=== PATIENT | female | born 1945 | race Caucasian/White ===

== ENCOUNTER 2019-02-12 00:33 | Outpatient (CLI) | payer MEDICARE, SELFPAY ==
--- NOTE | 2019-02-12 08:42 | DI.MAMMO_ITS ---
SYMPTOM/DIAGNOSIS: SCREENING, Z12.31, [facility], Z00.00 MAMMOGRAMS: Mammograms were interpreted according to the usual protocol including computer analysis with CAD system, tomosynthesis and C view imaging. The breast tissue is heterogeneously radiodense which lowers the sensitivity of the study. There is no dominant mass. There are no suspicious calcifications and there has been no significant interval change when compared with prior images. SUMMARY: No evidence of malignancy, category 1. Yearly screening mammography is recommended. Breast density, Category C. SA ASSESSMENT OF FINDINGS: Negative. Category 1. Patient will receive a letter notifying them of these results. Bi-RADS category C. The breasts are heterogeneously dense, which may obscure small masses.
== END 2019-02-12 00:53 ==
PROVIDERS: PCP Family Medicine; Visit Provider Family Medicine
DX: Z12.31 Encounter for screening mammogram for malignant neoplasm of breast (principal)
CPT/HCPCS: 77063; 77067

== ENCOUNTER 2020-09-07 22:34 | Outpatient (REF) | payer MEDICARE, SELFPAY ==
[2020-09-07 18:40] LABS: Anion Gap 8.4 mmol/L (3-11); BUN 14 mg/dL (7-18); CO2 29.6 mmol/L (21.0-32.0); CREATININE 0.71 mg/dL (0.55-1.02); Calcium 9.4 mg/dL (8.5-10.1); Calculated LDL 147 mg/dL (<100); Chloride 104 mmol/L (98-107); Cholesterol 234 mg/dL (<200); Glucose 86 mg/dL (74-106); HDL Cholesterol 72 mg/dL (40-60); Sodium 142 mmol/L (136-145); Triglyceride 79 mg/dL (<150)
== END 2020-09-07 22:54 ==
LOC: NCHCN 22:34
PROVIDERS: PCP Family Medicine; Visit Provider Family Medicine
DX: E78.5 Hyperlipidemia, unspecified (principal); F41.9 Anxiety disorder, unspecified; M85.80 Other specified disorders of bone density and structure, unspecified site; M17.0 Bilateral primary osteoarthritis of knee
CPT/HCPCS: 80048; 80061

== ENCOUNTER 2020-09-08 09:49 | Outpatient (CLI) | payer MEDICARE, SELFPAY ==
--- NOTE | 2020-09-07 15:44 | DI.RAD_ITS ---
EXAM: XR FOOT LT COMPLETE CLINICAL HISTORY: LT FOOT PAIN, M79.672. TECHNIQUE: 2D digital imaging was performed. COMPARISON: No exams were available for comparison FINDINGS: BONES: No acute fracture is present. No bony destructive lesion is seen. JOINTS: No dislocation present. Mild degenerative changes are seen at the 1st MTP joint. There is a small enthesophyte at the Achilles insertion site. SOFT TISSUE: Normal. IMPRESSION: No acute abnormality. Degenerative changes of the foot. DATA REPOSITORY: RADIATION DOSE DELIVERED:
== END 2020-09-08 10:09 ==
PROVIDERS: PCP Family Medicine; Visit Provider Family Medicine
DX: M79.672 Pain in left foot (principal); M19.072 Primary osteoarthritis, left ankle and foot
CPT/HCPCS: 73630

== ENCOUNTER 2020-09-23 02:43 | Outpatient (CLI) | payer MEDICARE, SELFPAY ==
--- NOTE | 2020-09-23 12:40 | DI.MAMMO_ITS ---
EXAM: MAMMO SCREENING CLINICAL HISTORY: SCREENING,FAMILY H/O BREAST CA,Z80.3,[facility],Z00.00 TECHNIQUE: Mammograms were interpreted according to the usual protocol including computer analysis w [email or web address] CAD system, tomosynthesis and C-view imaging. COMPARISON: FINDINGS: The breasts are heterogeneously dense. No dominant mass or clumped microcalcification is identified in either breast. The current examination is compared with previous examinations including January and there is question of increased prominence of a focal area of asymmetric density projected in th e central lateral portion of the right breast on CC view. Additional mammographic views of this area are requested to include CC spot compression view of the right breast. No other significant change seen. IMPRESSION: Additional mammographic views of the right breast requested as described above. Breast ultrasound ma y be indicated as well depending on the results of the additional mammographic views. BI-RADS Category 0 - Assessment Incomplete: Need additional imaging evaluation Breast Density - Category C - Heterogeneously dense
== END 2020-09-23 03:03 ==
PROVIDERS: PCP Family Medicine; Visit Provider Family Medicine
DX: Z12.31 Encounter for screening mammogram for malignant neoplasm of breast (principal); Z80.3 Family history of malignant neoplasm of breast; Z00.00 Encounter for general adult medical examination without abnormal findings; R92.8 Other abnormal and inconclusive findings on diagnostic imaging of breast
CPT/HCPCS: 77063; 77067

== ENCOUNTER 2020-09-30 01:20 | Outpatient (CLI) | payer MEDICARE, SELFPAY ==
--- NOTE | 2020-09-30 | DI.US_ITS ---
EXAM: MG MAMMO SCREEN CALL BACK UNI CLINICAL HISTORY: F/U MAMMO, INCREASED ASYMMETRIC DENSITY RT. TECHNIQUE: Craniocaudal and mediolateral oblique Full Field Digital Mammography views of the right b reast with Computer Aided Diagnosis followed by Tomosynthesis and right breast ultrasound. COMPARISON: Priors available for comparison. FINDINGS: Mammography/Tomosynthesis: Masses/Architectural Distortion: None seen. Microcalcifictions: No suspicious pleomorphic-type are seen. Skin Thickening/Nipple Retraction: None. Right breast US: Echotexture: Normal appearance of the glandular tissue. Shadowing: No suspicious foci. Cyst: None. Solid lesions: None seen. Ductal dilation: Mildly prominent ducts are present. No significant ductal dilatation. IMPRESSION: 1. No evidence of malignancy is noted. 2. A six-month follow-up right mammogram is requested for re-evaluation. 3. The findings were discussed with the patient on the date of the examination. BI-RADS Category 3 - 6 month - Probably Benign Finding: Recommend follow-up mammography in 6 months Breast Density - Category C - Heterogeneously dense The mammogram demonstrates the patient's breast tissue is dense. Dense breast tissue is very common a nd is not abnormal but dense breast tissue can make it harder to find cancer on a mammogram. Also, de nse breast tissue may increase their breast cancer risk. [facility] was provided to the patient to raise their awareness. Use this report when you speak wi th the patient about their risks for breast cancer, which includes their family history. At that time , you may recommend for more screening tests (Ultrasound or MRI) as they might be useful based on the ir risk. A negative radiographic report should not delay biopsy if a dominant or clinically suspicious mass is present. Up to ten percent of cancers are not identified on mammography. A negative report may reinforce clinical impression. Adenosis and dense breasts may obscure an underlying neoplasm. False positive reports average 6 to 10%. Patient will receive a letter notifying them of these results.
== END 2020-09-30 01:40 ==
PROVIDERS: PCP Family Medicine; Visit Provider Family Medicine
DX: R92.8 Other abnormal and inconclusive findings on diagnostic imaging of breast (principal)
CPT/HCPCS: 76642; 77063; 77067

== ENCOUNTER 2020-11-02 09:21 | Day surgery (SDC) | payer MEDICARE, SELFPAY ==
[2020-11-02 09:31] VITALS: BP 149/74; PULSE 69; RESP 18; TEMP 36.6; O2SAT 95
[2020-11-02] MEDS: Tropicam./Phenyleph. (1/2.5%) 5 ML BTL OD ×3 (10:00→10:07)
[2020-11-02] MEDS: Tetracaine 0.5% 4 ML BTL OD (11:42)
[2020-11-02] MEDS: Povidone-Iodine Ophth 30 ML BTL (11:43)
[2020-11-02] MEDS: Lidocaine 2% Jelly 6 ML SYR (11:43)
[2020-11-02] MEDS: Lidocaine 1% Pres-Free 5 ML VIAL (11:48)
[2020-11-02] MEDS: Balanced Salt Soln.-PLUS 500 ML BAG (11:51)
[2020-11-02] MEDS: Duovisc Viscoelastic System EACH 1 EACH (11:52)
[2020-11-02] MEDS: Moxifloxacin-PF 1 MG/ML VIAL (11:54)
--- NOTE | 2020-11-02 12:21 | W.PM.DSUDISC ---
Discharge Plan Disposition Patient Disposition: HOME Condition: Good Discharge Details Attending Provider: Wilmar Garcia Primary Care Provider: John Moroe Home Meds and New Rx's Prescriptions: No Action No Known Home Meds RF: 0 Discharge Instructions Stand Alone Forms: Post-op Topical Cataract, Jaylon Lindsay (DSU) Discharge Orders Discharge Orders: Discharge Order (Routine); Ordered 11/02/20 Ordered By: Wilmar Garcia DS: Diagnosis Discharge Diagnosis (1) Nuclear sclerotic cataract of right eye: Status: Resolved
--- NOTE | 2020-11-02 12:22 | W.PM.OP ---
Date of service: 11/02/20 Time of Service: 12:22 Operative Note Operative Note DATE OF PROCEDURE: 11/02/20 PRE-OP DIAGNOSIS: Nuclear cataract, right eye POST-OP DIAGNOSIS: same PROCEDURE: Cataract extraction using phacoemulsification with intraocular lens implant, right eye SURGEON: Wilmar Garcia ANESTHESIA: MAC and local (sub-tenon's anesthetic infiltration) ESTIMATED BLOOD LOSS: 0 PATHOLOGY: none sent COMPLICATIONS: None Patient was transported to: same day Patient's condition: stable Implants: Kwaku [employer] Kw[employer] Vision / [employer] Tecnis ZCB00 intraocular lens Indications: Progressive decreased vision due to cataract, right eye Procedure Description: CATARACT SURGERY OPERATIVE REPORT PREOPERATIVE DIAGNOSIS: Nuclear cataract, right eye POSTOPERATIVE DIAGNOSIS: Same OPERATION: Cataract extraction using phacoemulsification with posterior chamber intraocular lens implant, right eye. 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 The option of cataract surgery was offered to the patient and felt she was symptomatic of that she wished to proceed. PROCEDURE: The correct surgical eye was identified and marked as the right eye and the pupil was dilated in the preoperative area using mydriatics and cycloplegics. The dilated pupil size was 6.5 mm. No oral sedation was given. The patient was brought to the operating room where cardiopulmonary monitoring was instituted and surgical time-out was performed, confirming the correct operative eye and IOL power. Topical anesthesia was administered and ophthalmic povidone-iodine 5% was instilled into the conjunctival fornices. Lidocaine gel was applied to the cornea and the marek-ocular area was prepped with Betadine 10% solution and draped in the usual sterile fashion for intraocular surgery, including an aperture drape. A Tegaderm transparent film dressing was cut in half and used to cover the lashes and lid margins. Care was taken to sequester the lashes and lid margins under the Tegaderm dressing. A lid speculum was placed between the lids of the operative eye and the Mariluz-Jigar operating microscope was maneuvered into position. Thad scissors were then used to make a conjunctival buttonhole approximately 6mm posterior to the limbus in the inferonasal quadrant. Blunt dissection was carried out to expose bare sclera, and a blunt-tipped sub-tenon?s anesthesia cannula was introduced and passed posteriorly along the globe where non-preserved plain lidocaine was injected into posterior sub-Tenon?s space. A sideport knife was used to make a paracentesis port inferiortemporally. Intraocular phenylephrine/lidocaine was injected into the anterior chamber. The anterior chamber was then filled with viscoelastic. A 2.4mm keratome knife was used to create a half-thickness groove at the limbus and then to construct a three-plane near-clear corneal tunnel extending 2.0mm into clear cornea in the superiortemporal position. . A flap was raised on the anterior capsule and capsulorhexis forceps were used to complete a continuous curvilinear capsulorhexis of 5.5 mm. Mild to moderate zonular laxity was noted. Balanced salt solution was then used to perform cortical cleaving hydrodissection and nuclear hydrodelineation until the lens could be freely rotated within the capsular bag. The lens nucleus was then disassembled and removed within the capsular bag and iris plane using phacoemulsification. Residual cortical material was removed using the I/A handpiece. The posterior capsule was carefully polished to remove as much residual lens epithelial cells as safely possible. The capsular bag was then inflated and the anterior chamber deepened with viscoelastic. The lens implant described above was inserted into the capsular bag using the RODOLFO [place] Injector. A Kuglen hook was used to dial the IOL into position. Residual viscoelastic was then removed first from posterior to the IOL, then from the anterior chamber using the I/A handpiece. The lens implant was noted to center nicely within the capsular bag. The incisions were stromally hydrated, and the anterior chamber was reformed using BSS. Then 0.5cc of moxifloxacin 1.0mg/ml were injected into the capsular bag and anterior chamber. The incisions were checked with a Weck spear and found to be secure. Several drops of ophthalmic povidone-iodine 5% were then applied to the eye followed by two drops of Imprimis combination prednisolone/moxifloxacin/nepafenac solution. The drapes were removed and a clear plastic protective eye shield was placed over the eye. The patient was then returned to Same Day Surgery in stable condition.
== END 2020-11-02 12:43 | disposition home or self-care (01) ==
PROVIDERS: PCP Family Medicine; Visit Provider Ophthalmology
PROC: (CPT 66984; principal; 2020-11-02 11:15)
DX: H25.11 Age-related nuclear cataract, right eye (principal)
CPT/HCPCS: 66984; V2632

== ENCOUNTER 2020-11-16 08:40 | Day surgery (SDC) | payer MEDICARE, SELFPAY ==
[2020-11-16 09:06] VITALS: BP 134/74; PULSE 16; RESP 16; TEMP 36.5; O2SAT 100
[2020-11-16] MEDS: Tropicam./Phenyleph. (1/2.5%) 5 ML BTL OS ×3 (09:24→09:35)
[2020-11-16] MEDS: Lidocaine 2% Jelly 6 ML SYR (10:25)
[2020-11-16] MEDS: Tetracaine 0.5% 4 ML BTL OS (10:25)
[2020-11-16] MEDS: Povidone-Iodine Ophth 30 ML BTL (10:26)
[2020-11-16] MEDS: Lidocaine 1% Pres-Free 5 ML VIAL (10:31)
[2020-11-16] MEDS: Balanced Salt Soln.-PLUS 500 ML BAG (10:33)
--- NOTE | 2020-11-16 10:51 | W.PM.OP ---
Date of service: 11/16/20 Time of Service: 10:51 Operative Note Operative Note DATE OF PROCEDURE: 11/16/20 PRE-OP DIAGNOSIS: Nuclear cataract, left eye POST-OP DIAGNOSIS: same PROCEDURE: Cataract extraction using phacoemulsification with intraocular lens implant, left eye SURGEON: Wilmar Garcia ANESTHESIA: MAC and local (sub-tenon's anesthetic infiltration) PATHOLOGY: none sent COMPLICATIONS: None Patient was transported to: same day Patient's condition: stable Implants: Kwaku and Kwaku Vision / [employer] Opt[employer] Tecnis ZCB00 Indications: Progressive decreased vision due to cataract, left eye Procedure Description: CATARACT SURGERY OPERATIVE REPORT PREOPERATIVE DIAGNOSIS: Nuclear cataract, left eye POSTOPERATIVE DIAGNOSIS: Same OPERATION: Cataract extraction using phacoemulsification with posterior chamber intraocular lens implant, left eye. IOL: IOL Test Department Helper/Model: J&J Vision / RODOLFO Tecnis ZCB00 IOL Power: + 29.0 diopters IOL Serial Number: [id number] Optic Diameter: 6.0mm Haptic/Overall Diameter: 13.0mm PHACO INFO: Jesús [employer]ion Vision System with OZil and Active Fluidics Cumulative Dispersed Energy (CDE): 7.62 seconds SURGEON: Wilmar Garcia MD, SHAYAN ANESTHESIA: Monitored Anesthesia Care (MAC), with local sub-tenon's anesthetic infiltration COMPLICATIONS: None SPECIMENS: None INDICATIONS FOR PROCEDURE: The patient is a 75-year-old lady with history of diminished visual acuity in both eyes secondary to the development of bilateral nuclear cataract. She has a history of high hyperopia with narrow angles. She has previously undergone laser iridotomy. She has already undergone cataract surgery in her right eye and is doing well postoperatively. She now presents for cataract surgery in the left eye. PROCEDURE: The correct surgical eye was identified and marked as the left eye and the pupil was dilated in the preoperative area using mydriatics and cycloplegics. The dilated pupil size was 6.5 mm. The patient elected to proceed without oral sedation the patient was brought to the operating room where cardiopulmonary monitoring was instituted and surgical time-out was performed, confirming the correct operative eye and IOL power. Topical anesthesia was administered and ophthalmic povidone-iodine 5% was instilled into the conjunctival fornices. Lidocaine gel was applied to the cornea and the marek-ocular area was prepped with Betadine 10% solution and draped in the usual sterile fashion for intraocular surgery, including an aperture drape. A Tegaderm transparent film dressing was cut in half and used to cover the lashes and lid margins. Care was taken to sequester the lashes and lid margins under the Tegaderm dressing. A lid speculum was placed between the lids of the operative eye and the Mariluz-Jigar operating microscope was maneuvered into position. Thad scissors were then used to make a conjunctival buttonhole approximately 6mm posterior to the limbus in the inferonasal quadrant. Blunt dissection was carried out to expose bare sclera, and a blunt-tipped sub-tenon?s anesthesia cannula was introduced and passed posteriorly along the globe where non-preserved plain lidocaine was injected into posterior sub-Tenon?s space. A sideport knife was used to make a paracentesis port superior/superiortemporally. Intraocular phenylephrine/lidocaine was injected into the anterior chamber. The anterior chamber was then filled with viscoelastic. A 2.4mm keratome knife was used to create a half-thickness groove at the limbus and then to construct a three-plane near-clear corneal tunnel extending 2.0mm into clear cornea in the temporal position. . A flap was raised on the anterior capsule and capsulorhexis forceps were used to complete a continuous curvilinear capsulorhexis of 5.0 mm. Balanced salt solution was then used to perform cortical cleaving hydrodissection and nuclear hydrodelineation until the lens could be freely rotated within the capsular bag. The lens nucleus was then disassembled and removed within the capsular bag and iris plane using phacoemulsification. Residual cortical material was removed using the 45-degree angled silicone I/A tip with 0.3mm port. The posterior capsule was carefully polished to remove as much residual lens epithelial cells as safely possible. The capsular bag was then inflated and the anterior chamber deepened with viscoelastic. The lens implant described above was inserted into the capsular bag using the RODOLFO [place] Injector. A Kuglen hook was used to dial the IOL into position. Residual viscoelastic was then removed first from posterior to the IOL, then from the anterior chamber using the I/A handpiece. The lens implant was noted to center nicely within the capsular bag. The incisions were stromally hydrated, and the anterior chamber was reformed using BSS. Then 0.5cc of moxifloxacin 1.0mg/ml were injected into the capsular bag and anterior chamber. The incisions were checked with a Weck spear and found to be secure. Several drops of ophthalmic povidone-iodine 5% were then applied to the eye followed by two drops of Imprimis combination prednisolone/moxifloxacin/nepafenac solution. The drapes were removed and a clear plastic protective eye shield was placed over the eye. The patient was then returned to Same Day Surgery in stable condition.
--- NOTE | 2020-11-16 10:51 | W.PM.DSUDISC ---
Discharge Plan Disposition Patient Disposition: HOME Condition: Good Discharge Details Attending Provider: Wilmar Garcia Primary Care Provider: John Moore Home Meds and New Rx's Prescriptions: No Action No Known Home Meds RF: 0 Discharge Instructions Stand Alone Forms: Post-op Block Cataract, Post-op Topical Cataract, Press Ganey (DSU) Discharge Orders Discharge Orders: Discharge Order (Routine); Ordered 11/16/20 Ordered By: Wilmar Garcia DS: Diagnosis Discharge Diagnosis (1) Nuclear sclerotic cataract of left eye: Status: Resolved
== END 2020-11-16 11:28 | disposition home or self-care (01) ==
PROVIDERS: PCP Family Medicine; Visit Provider Ophthalmology
PROC: (CPT 66984; principal; 2020-11-16 10:30)
DX: H25.12 Age-related nuclear cataract, left eye (principal); Z98.41 Cataract extraction status, right eye; Z96.1 Presence of intraocular lens
CPT/HCPCS: 66984; V2632

== ENCOUNTER 2021-04-01 02:10 | Outpatient (CLI) | payer MEDICARE, SELFPAY ==
--- NOTE | 2021-04-01 09:15 | DI.MAMMO_ITS ---
Exam(s) MG MAMMO DIAGNOSTIC UNI EXAM: MG MAMMO DIAGNOSTIC UNI CLINICAL HISTORY: DIAGNOSTIC, 6 MO F/U, F/U ABNL MAMMO, R92.8 TECHNIQUE: Mammograms were interpreted according to the usual protocol including computer analysis w [employer] CAD system, tomosynthesis and C-view imaging. COMPARISON: FINDINGS: Today's right breast mammogram was obtained to follow questionable area of asymmetric density seen in the lateral aspect of right breast on prior examination of August 2020. The findings are less prom inent on the current examination. No dominant mass or clumped microcalcification is seen. IMPRESSION: No specific evidence of malignancy at this time. I would suggest that routine screening examinations resume with a bilateral mammogram in 6 months. BI-RADS Category 3 - 6 month - Probably Benign Finding: Recommend follow-up mammography in 6 months Breast Density - Category C - Heterogeneously dense
== END 2021-04-01 02:30 ==
PROVIDERS: PCP Family Medicine; Visit Provider Family Medicine
DX: Z12.31 Encounter for screening mammogram for malignant neoplasm of breast (principal); R92.8 Other abnormal and inconclusive findings on diagnostic imaging of breast; N64.59 Other signs and symptoms in breast
CPT/HCPCS: 77061; 77065; G0279

== ENCOUNTER 2021-06-16 01:59 | Outpatient (CLI) | payer MEDICARE, SELFPAY ==
--- NOTE | 2021-06-16 08:18 | DI.RAD_ITS ---
Exam(s) XR HIP RT COMPLETE AP PELVIS EXAM: XR HIP RT COMPLETE AP PELVIS CLINICAL HISTORY: RT HIP PAIN, M25.551. TECHNIQUE: 2D digital imaging was performed. COMPARISON: No exams were available for comparison FINDINGS: There is no evidence of pelvic or hip fracture. There is advanced osteoarthritic change in the right hip with advanced diminution of the joint space and marginal osteophytes evident on the femoral head. Also degenerative subarticular cyst. Mild deg enerative changes noted in the opposite-left hip. Sacroiliac joints appear unremarkable. 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 DATA REPOSITORY: RADIATION DOSE DELIVERED:
== END 2021-06-16 02:19 ==
PROVIDERS: PCP Family Medicine; Visit Provider Family Medicine
DX: M16.11 Unilateral primary osteoarthritis, right hip (principal)
CPT/HCPCS: 73502

== ENCOUNTER 2021-09-29 00:37 | Outpatient (CLI) | payer MEDICARE, SELFPAY ==
--- NOTE | 2021-09-29 08:30 | DI.MAMMO_ITS ---
Exam(s) MAMMO SCREENING EXAM: MAMMO SCREENING CLINICAL HISTORY: [facility] Z00.00, SCREENING FOR BREAST CANCER. TECHNIQUE: Bilateral full field digital CC and MLO mammographic images were obtained with 3D tomosyn thesis and utilizing computer aided detection (CAD). COMPARISON: Prior mammograms dating back to 2011, the most recent being August 2020. Also diagnost ic mammogram 04/01/2021 was reviewed. Right breast ultrasound 09/30/2020 was also reviewed Significant family history. This patient has 2 sisters who have been diagnosed with breast cancer af ter the age of 50. FINDINGS: The fibroglandular tissue pattern is again noted be dense, this decreasing the sensitivity of the tenisha mogram for finding hidden underlying lesions. There are no CAD designations No new obvious findings in left breast. In the right breast on 3D imaging there is a well-defined asymmetric density 2 cm in from the nipple, measuring 3 x 3 millimeters. Spot compression view recommended. There are no malignant-appearing m icrocalcification groups in either breast There is no significant architectural distortion nor skin thickening-retraction. IMPRESSION: Dense bilateral fibroglandular tissue. There is a 3 x 3 millimeter probable nodule in the right ivy st located 2 cm in from the nipple on the CC view. Spot compression view and ultrasound recommended . I recommend that the ultrasound be a bilateral complete study, given this finding, the density of her fibroglandular tissue, and significant family history (2 sisters with breast cancer). BI-RADS Category 0 - Assessment Incomplete: Need additional imaging evaluation Breast Density - Category C - Heterogeneously dense Breast density Category C or D implies that the patient has dense breast tissue. Dense breast tissue can make it harder to find cancer on a mammogram. Dense breast tissue is also associated with an incr eased risk of breast cancer. This information about the result of the mammogram report was provided to the patient to raise their awareness. Use this report when you speak with the patient about their risks for breast cancer, which includes their family history. At that time, you may recommend additional screening tests (Ultrasoun d or MRI) as these tests may add significant information. A negative radiographic report should not delay biopsy if a dominant or clinically suspicious mass is present. Up to ten percent of cancers are not identified on mammography. A negative report may reinforce clinical impression. Adenosis and dense breasts may obscure an underlying neoplasm. False positive reports average 6 to 10%. Patient will receive a letter notifying them of these results.
== END 2021-09-29 00:57 ==
PROVIDERS: PCP Family Medicine; Visit Provider Family Medicine
DX: Z12.31 Encounter for screening mammogram for malignant neoplasm of breast (principal); R92.8 Other abnormal and inconclusive findings on diagnostic imaging of breast
CPT/HCPCS: 77063; 77067

== ENCOUNTER 2021-10-22 00:42 | Outpatient (CLI) | payer MEDICARE, SELFPAY ==
--- NOTE | 2021-10-22 | DI.US_ITS ---
Exam(s) MG MAMMO SCREEN CALL BACK UNI US BREAST LT COMPLETE US BREAST RT COMPLETE EXAM: MG MAMMO SCREEN CALL BACK UNI CLINICAL HISTORY: F/U MAMMO, ASYMMETRIC DENSITY, DENSE TISSUE, ? NODULE. TECHNIQUE: Craniocaudal spot compression digital Mammography views of the right breast followed by Tomosynthesis and bilateral breast ultrasound. COMPARISON: 2011 through 29 September 2021 FINDINGS: Mammography/Tomosynthesis: Masses/Architectural Distortion: Persistent circumscribed 3 millimeter nodule subareolar right breast .. Microcalcifictions: No suspicious pleomorphic-type are seen. Skin Thickening/Nipple Retraction: None. Right breast US: Echotexture: Normal appearance of the glandular tissue. Shadowing: No suspicious foci. Cyst: 4 millimeter simple appearing cyst subareolar region. Solid lesions: None seen. Ductal dilation: None. Left breast ultrasound: No cyst, solid mass or ductal dilatation. IMPRESSION: 1. No evidence of malignancy is noted. 4 millimeter cystcorresponding to mammographic nodularity. 2. Unless there is more urgent need, follow-up screening mammography is recommended, as per [place] [employer] guidelines. 3. The findings were discussed with the patient on the date of the examination. BI-RADS Category 2 - Benign Findings Breast Density - Category C - Heterogeneously dense A mammogram that demonstrates density of C or D indicates the patient's breast tissue is dense. Dense breast tissue is very common and is not abnormal, but dense breast tissue can make it harder to find cancer on a mammogram. Also, dense breast tissue may increase their breast cancer risk. This informa tion about the result of the mammogram report was provided to the patient to raise their awareness. U se this report when you speak with the patient about their risks for breast cancer, which includes th eir family history. At that time, you may recommend for more screening tests (Ultrasound or MRI) as t hey might be useful based on their risk. A negative radiographic report should not delay biopsy if a dominant or clinically suspicious mass is present. Up to ten percent of cancers are not identified on mammography. A negative report may reinforce clinical impression. Adenosis and dense breasts may obscure an underlying neoplasm. False positive reports average 6 to 10%. Patient will receive a letter notifying them of these results.
== END 2021-10-22 01:02 ==
PROVIDERS: PCP Family Medicine; Visit Provider Family Medicine
DX: R92.8 Other abnormal and inconclusive findings on diagnostic imaging of breast (principal)
CPT/HCPCS: 76642; 77063; 77067

== ENCOUNTER 2021-11-03 00:45 | Outpatient (CLI) | payer MEDICARE, SELFPAY ==
--- NOTE | 2021-11-03 | DI.MRI_ITS ---
Exam(s) MR UPPER JOINT RT WO EXAM: MR UPPER JOINT RT WO CLINICAL HISTORY: RT SHOULDER PAIN M25.511, RT SHOULDER PAIN WEAKNESS ASYMMETRY, FAILED PT. TECHNIQUE: Multiplanar multisequence MRI was performed. COMPARISON: No exams were available for comparison FINDINGS: BONES: There is no evidence of an occult fracture. There is hyperintense marrow signal in the glenoi d and base of the coracoid process extending part way into the body of the scapula. JOINTS: Degenerative changes are seen at the acromioclavicular joint. There are marked degenerative changes of the glenohumeral joint with loss of the articular cartilage narrowing of the joint space a nd periarticular spurring present. There is a joint effusion. TENDONS: Supraspinatus: There is a full-thickness tear of the supraspinatus tendon at its insertion site anter iorly. Thickening of the tendon is noted suggesting underlying tendinosis. Infraspinatus: Unremarkable. Subscapularis: There is hyperintense signal and thickening at the subscapularis tendon at its inserti on site onto the lesser tuberosity suggestive of a partial tear. Teres [place]: Unremarkable. Biceps and [place]: Unremarkable. MUSCLES: Unremarkable. GLENOID LABRUM: There is abnormal signal in size of the labrum particularly superiorly suspicious for tear. SOFT TISSUES: Unremarkable. LIGAMENTS: Unremarkable. OTHER: There is a large amount of fluid seen in the subacromial subdeltoid bursa. There is are a few hypointense objects within the bursal fluid consistent with loose bodies. The largest is seen poste riorly and measures 1.2 x 4.2 cm. IMPRESSION: 1. Full-thickness tear of the supraspinatus tendon. 2. Tendinosis of the subscapularis tendon with findings suggestive of a partial tear. 3. Question of a superior labral tear. 4. Large amount of fluid in the subacromial subdeltoid bursa with loose bodies present. 5. Marked degenerative changes seen at the acromioclavicular and glenohumeral joints. 6. Hyperintense marrow signal in the scapula as described. This is nonspecific. CT scan may be obta ined for further evaluation. DATA REPOSITORY:
== END 2021-11-03 01:05 ==
PROVIDERS: PCP Family Medicine; Visit Provider Nurse Practitioner Family
DX: M25.511 Pain in right shoulder (principal); R53.1 Weakness; M19.011 Primary osteoarthritis, right shoulder; M75.121 Complete rotator cuff tear or rupture of right shoulder, not specified as traumatic; M75.81 Other shoulder lesions, right shoulder; M24.011 Loose body in right shoulder
CPT/HCPCS: 73221

== ENCOUNTER 2022-01-14 01:03 | Outpatient (CLI) | payer MEDICARE, SELFPAY ==
[2022-01-14 15:57] LABS: Source Nasal/Nares
[2022-01-14 21:03] LABS: COVID-19 PCR Negative (Negative)
== END 2022-01-14 01:04 | disposition home or self-care (01) ==
LOC: LBO 01:03
PROVIDERS: PCP Family Medicine; Visit Provider Orthopaedic Surgery
DX: Z20.822 Contact with and (suspected) exposure to COVID-19 (principal); Z01.812 Encounter for preprocedural laboratory examination
CPT/HCPCS: 87635; U0003; U0005

== ENCOUNTER 2022-01-19 09:39 | Outpatient (CLI) | payer MEDICARE, SELFPAY ==
[2022-01-19 10:21] LABS: INR 1.5 (0.9-1.1); Prothrombin Time 14.9 sec (9.3-11.0)
== END 2022-01-19 09:40 | disposition home or self-care (01) ==
LOC: LBO 09:43
PROVIDERS: PCP Family Medicine
DX: Z79.01 Long term (current) use of anticoagulants (principal); M16.11 Unilateral primary osteoarthritis, right hip
CPT/HCPCS: 36415; 85610

== ENCOUNTER 2022-01-21 04:25 | Outpatient (CLI) | payer MEDICARE, SELFPAY ==
[2022-01-21 09:39] LABS: INR 2.4 (0.9-1.1); Prothrombin Time 23.7 sec (9.3-11.0)
== END 2022-01-21 04:26 | disposition home or self-care (01) ==
LOC: LBO 04:25
PROVIDERS: PCP Family Medicine
DX: Z79.01 Long term (current) use of anticoagulants (principal); M16.11 Unilateral primary osteoarthritis, right hip
CPT/HCPCS: 36415; 85610

== ENCOUNTER 2022-01-24 03:20 | Outpatient (CLI) | payer MEDICARE, SELFPAY ==
[2022-01-24 11:51] LABS: INR 2.7 (0.9-1.1); Prothrombin Time 26.1 sec (9.3-11.0)
== END 2022-01-24 03:21 | disposition home or self-care (01) ==
LOC: LBO 03:24
PROVIDERS: PCP Family Medicine
DX: M16.11 Unilateral primary osteoarthritis, right hip (principal); Z79.01 Long term (current) use of anticoagulants
CPT/HCPCS: 36415; 85610

== ENCOUNTER 2022-01-28 03:56 | Outpatient (CLI) | payer MEDICARE, SELFPAY ==
[2022-01-28 10:34] LABS: INR 1.7 (0.9-1.1); Prothrombin Time 16.7 sec (9.3-11.0)
== END 2022-01-28 03:57 | disposition home or self-care (01) ==
LOC: LBO 03:56
PROVIDERS: PCP Family Medicine
DX: Z79.01 Long term (current) use of anticoagulants (principal); M16.11 Unilateral primary osteoarthritis, right hip
CPT/HCPCS: 36415; 85610

== ENCOUNTER 2022-01-31 04:20 | Outpatient (CLI) | payer MEDICARE, SELFPAY ==
[2022-01-31 09:50] LABS: INR 1.4 (0.9-1.1); Prothrombin Time 14.1 sec (9.3-11.0)
== END 2022-01-31 04:21 | disposition home or self-care (01) ==
LOC: LBO 04:21
PROVIDERS: Orthopaedic Surgery; PCP Family Medicine; Visit Provider Nurse Practitioner Family
DX: Z79.01 Long term (current) use of anticoagulants (principal); M16.11 Unilateral primary osteoarthritis, right hip
CPT/HCPCS: 36415; 85610

== ENCOUNTER 2022-02-04 03:56 | Outpatient (CLI) | payer MEDICARE, SELFPAY ==
[2022-02-04 09:23] LABS: INR 1.5 (0.9-1.1); Prothrombin Time 14.9 sec (9.3-11.0)
== END 2022-02-04 03:57 | disposition home or self-care (01) ==
PROVIDERS: PCP Family Medicine; Visit Provider Orthopaedic Surgery
DX: Z79.01 Long term (current) use of anticoagulants (principal); M16.11 Unilateral primary osteoarthritis, right hip
CPT/HCPCS: 36415; 85610

== ENCOUNTER 2022-02-07 02:10 | Outpatient (CLI) | payer MEDICARE, SELFPAY ==
[2022-02-07 09:24] LABS: INR 1.5 (0.9-1.1); Prothrombin Time 15.1 sec (9.3-11.0)
== END 2022-02-07 02:11 | disposition home or self-care (01) ==
LOC: LBO 02:10
PROVIDERS: PCP Family Medicine; Visit Provider Orthopaedic Surgery
DX: Z79.01 Long term (current) use of anticoagulants (principal); M16.11 Unilateral primary osteoarthritis, right hip
CPT/HCPCS: 36415; 85610

== ENCOUNTER 2022-02-11 01:30 | Outpatient (CLI) | payer MEDICARE, SELFPAY ==
[2022-02-11 09:26] LABS: INR 1.6 (0.9-1.1); Prothrombin Time 16.2 sec (9.3-11.0)
== END 2022-02-11 01:31 | disposition home or self-care (01) ==
LOC: LBO 01:30
PROVIDERS: PCP Family Medicine; Visit Provider Orthopaedic Surgery
DX: Z79.01 Long term (current) use of anticoagulants (principal); M16.11 Unilateral primary osteoarthritis, right hip
CPT/HCPCS: 36415; 85610

== ENCOUNTER 2022-09-14 10:14 | Outpatient (REF) | payer MEDICARE, SELFPAY ==
[2022-09-14 15:10] LABS: CREATININE 0.7 mg/dL (0.55-1.02); Estimated GFR 89.58 (mL/min/1.73m2)
[2022-09-15 05:08] LABS: Vitamin D 25 Total 18.5 ng/mL (30-100)
== END 2022-09-14 10:15 | disposition home or self-care (01) ==
LOC: NCHCN 10:14
PROVIDERS: PCP Family Medicine; Visit Provider Family Medicine
DX: M81.0 Age-related osteoporosis without current pathological fracture (principal); I10 Essential (primary) hypertension
CPT/HCPCS: 82306; 82565

== ENCOUNTER → 2023-09-26 01:16 | Outpatient (CLI) | payer MEDICARE, SELFPAY ==
--- NOTE | 2023-09-26 | DI.MAMMO_ITS ---
Exam(s) MAMMO SCREENING EXAM: MAMMO SCREENING CLINICAL HISTORY: SCREENING, Z12.39, FAM HX BREAST CANCER, Z80.3 TECHNIQUE: Bilateral full field digital CC and MLO mammographic images were obtained with 3D tomosyn thesis and utilizing computer aided detection (CAD). COMPARISON: Available for comparison. FINDINGS: Masses/Architectural Distortion: Stable small nodules are seen in the outer left breast on the CC vie w. No new nodules or suspicious areas of architectural distortion are seen. Microcalcifications: No suspicious pleomorphic-type are seen. Skin Thickening/Nipple Retraction: None. IMPRESSION: 1. No significant interval change with no specific features of malignancy noted. 2. Unless there is more urgent need, screening mammography is recommended, as per [employer] guidelines. BI-RADS Category 2 - Benign Findings Breast Density - Category C - Heterogeneously dense Breast density category C or D implies that the patient has dense breast tissue. Dense breast tissue is very common and is not abnormal but dense breast tissue can make it harder to find cancer on a ma mmogram. Also, dense breast tissue may increase their breast cancer risk. This information about the result of the mammogram report was provided to the patient to raise their awareness. Use this report when you speak with the patient about their risks for breast cancer, which includes their family hist ory. At that time, you may recommend for more screening tests (Ultrasound or MRI) as they might be us eful based on their risk. A negative radiographic report should not delay biopsy if a dominant or clinically suspicious mass is present. Up to ten percent of cancers are not identified on mammography. A negative report may reinforce clinical impression. Adenosis and dense breasts may obscure an underlying neoplasm. False positive reports average 6 to 10%. Patient will receive a letter notifying them of these results.
== END ==
PROVIDERS: PCP Family Medicine; Visit Provider Family Medicine
DX: Z12.31 Encounter for screening mammogram for malignant neoplasm of breast (principal)
CPT/HCPCS: 77063; 77067

== ENCOUNTER 2024-03-07 14:28 | Outpatient (REF) | payer MEDICARE, SELFPAY ==
[2024-03-07 16:18] LABS: Anion Gap 9.9 mmol/L (3-11); BUN 16 mg/dL (7-18); CO2 29.1 mmol/L (21.0-32.0); CREATININE 0.7 mg/dL (0.55-1.02); Calcium 9.6 mg/dL (8.5-10.1); Calculated LDL 129 mg/dL (<100); Chloride 104 mmol/L (98-107); Cholesterol 223 mg/dL (<200); Estimated GFR 89.02 (mL/min/1.73m2); Glucose 99 mg/dL (74-106); HDL Cholesterol 73 mg/dL (40-60); Potassium 4.3 mmol/L (3.5-5.1); Sodium 143 mmol/L (136-145); Triglyceride 108 mg/dL (<150)
== END 2024-03-07 14:29 | disposition home or self-care (01) ==
LOC: NCHCN 14:28
PROVIDERS: PCP Family Medicine; Visit Provider Family Medicine
DX: E78.5 Hyperlipidemia, unspecified (principal); I10 Essential (primary) hypertension
CPT/HCPCS: 80048; 80061

== ENCOUNTER 2024-08-08 13:15 | Outpatient (CLI) | payer MEDICARE, SELFPAY ==
[2024-08-08 10:54] LABS: Abs Immature Grans 0.03 10^3/uL (0.0-0.06); Absolute Basophil Count 0.07 10^3/uL (0.0-0.2); Absolute Eosinophil Count 0.07 10^3/uL (0.0-0.7); Absolute Lymphocyte Count 1.84 10^3/uL (1.2-3.4); Absolute Monocyte Count 0.52 10^3/uL (0.1-0.8); Absolute Neutrophil Count 5.18 10^3/uL (1.2-6.7); Basophils % 0.9 %; Eosinophils % 0.9 %; HCT 44.1 % (36.0-46.0); Immature Grans % 0.4 %; Lymphocytes % 23.9 %; MCH 28.7 pg (27.0-33.0); MCHC 31.7 % (32.0-36.0); MCV 91 fL (80-95); MPV 9.4 fL (8.0-11.0); Monocytes % 6.7 %; Neutrophils % 67.2 %; Platelet Count 405 10^3/uL (130-400); RBC 4.87 10^6/uL (3.93-5.22); RDW 13.2 % (11.7-14.6); RDW-SD 44.1 fL; WBC 7.71 10^3/uL (4.4-10.8)
[2024-08-08 11:15] LABS: ALT 19 U/L (14-59); AST 18 U/L (15-37); Alkaline Phosphatase 89 U/L (46-116); BUN 13 mg/dL (7-18); Bilirubin, Total 0.43 mg/dL (0.2-1.0); CREATININE 0.8 mg/dL (0.55-1.02); Calcium 9.8 mg/dL (8.5-10.1); Chloride 103 mmol/L (98-107); Estimated GFR 75.37 (mL/min/1.73m2); Glucose 104 mg/dL (74-106); Lipase 39 U/L (16-77); Potassium 4.1 mmol/L (3.5-5.1); Sodium 139 mmol/L (136-145); Total Protein 7.9 g/dL (6.4-8.2)
== END 2024-08-08 13:16 | disposition home or self-care (01) ==
LOC: LBO 13:15
PROVIDERS: PCP Family Medicine; Visit Provider Physician Assistant Medical
DX: R10.9 Unspecified abdominal pain (principal)
CPT/HCPCS: 36415; 80053; 83690; 85025

== ENCOUNTER 2024-08-08 13:17 | Outpatient (CLI) | payer MEDICARE, SELFPAY ==
--- NOTE | 2024-08-08 | DI.CT_ITS ---
Exam(s) CT ABDOMEN PELVIS W EXAM: CT ABDOMEN PELVIS W CLINICAL HISTORY: ABDOMINAL PAIN, R10.9 TECHNIQUE: Imaging Protocol: Axial computed tomography images with coronal and sagittal reformatted images were created and reviewed. CONTRAST MATERIAL: Intravenous: Omnipaque 350 Contrast volume:85 mL Oral: No COMPARISON: No exams were available for comparison FINDINGS: ABDOMEN: Lung Bases: Normal where visualized. Liver: Normal density. There is a 2 cm cyst in the left lobe of the liver. No suspicious hepatic mas ses are present. Portal, Superior Mesenteric, and Splenic Veins: Unremarkable. Gallbladder and Biliary Tract: No radiodense calculus or dilation. Pancreas: Normal density, no abnormal calcifications or inflammatory process. Spleen: Normal. Adrenals: Mild nodularity of the adrenal glands bilaterally. Kidneys: Normal size, contour and axis. No radiodense stones or obstructive uropathy. No masses seen. Abdominal Aorta: Abdominal portion non-dilated. Atherosclerotic calcification is present. Bowel: There is diverticulosis present. There does appear to be mild inflammation seen around the pr oximal sigmoid colon (series 9, image 53). This may reflect a a acute diverticulitis. No abscess or free air. There is no evidence of bowel obstruction. Appendix is unremarkable. Peritoneal Cavity: No ascites, collection or mesenteric inflammatory response. No free air. Lymph Nodes: Within normal limits. Bones: Within normal limits for the patient's age. Patient has bilateral total hip replacements. Gr lori 1 anterolisthesis of L4 on L5 is present. Soft Tissues: There is a moderate-sized fat containing hernia in the posterior left abdominal wall. PELVIS: Bladder: No gross abnormality is seen, however, large portions of the urinary bladder are obscured by the patient's bilateral total hip replacements. Reproductive Organs: The ovaries and portions of the uterus are visualized and are unremarkable. The remainder of the reproductive organs are not seen secondary to artifact from the patient's hip prost heses. Lymph Nodes: Within normal limits. Bones: Within normal limits for the patient's age. IMPRESSION: 1. Colonic diverticulosis. Mild inflammatory changes around the proximal sigmoid colon suggesting a mild acute diverticulitis. No evidence of abscess or free air. 2. Incidental findings in the abdomen and pelvis as described above. RADIATION DOSE DELIVERED: 522.7mGy.cm Total DLP DATA REPOSITORY: All CT scans at this facility are submitted to the National Radiology Data Registry (NRDR) Dose Index Registry (DIR) with the [employer] (ACR). RADIATION OPTIMIZATION: All CT scans at this facility use at least one of these dose optimization te chniques: automated exposure control; mA and/or kV adjustment per patient size (includes targeted exa ms where dose is matched to clinical indication); or iterative reconstruction.
[2024-08-08] MEDS: Omnipaque 350 MG/ML 100 ML BTL IJ (15:49)
[2024-08-08] MEDS: Normal Saline - Diluent 50 ML VIAL IJ (15:50)
--- NOTE | 2024-08-08 17:12 | DI.VRAD_ITS ---
PROCEDURE INFORMATION: Exam: CT Abdomen And Pelvis With Contrast Exam date and time: 08/08/2024 3:48 PM Age: 79 years old Clinical indication: Other: Left sided abd pain TECHNIQUE: Imaging protocol: Computed tomography of the abdomen and pelvis with contrast. Radiation optimization: All CT scans at this facility use at least one of these dose optimization techniques: automated exposure control; mA and/or kV adjustment per patient size (includes targeted exams where dose is matched to clinical indication); or iterative reconstruction. Contrast material: OMNIPAQUE 350; Contrast volume: 85 ml; Contrast route: INTRAVENOUS (IV); Other contrast: Oral, barium, 1000; COMPARISON: No relevant comparison study. FINDINGS: Limitations: Marked streak artifact from the right and left total hip arthroplasties. Esophagus: Mild gastroesophageal reflux with contrast in the distal esophagus. Diaphragm: Hiatal hernia. Liver: 2.0 cm simple left hepatic cyst. Several small additional subcentimeter hypodensities in the liver consistent with hepatic cysts. Gallbladder and biliary ducts: Normal. No calcified stones. No ductal dilation. Pancreas: Normal. No ductal dilation. Spleen: Normal. No splenomegaly. Adrenal glands: 1.5 cm right adrenal nodule. 1.9 cm left adrenal nodule. Kidneys and ureters: Normal. No hydronephrosis. Left posterior perirenal fat herniation. Stomach and bowel: Oral contrast in the stomach, small bowel, and colon. Extensive diverticuli throughout the entire colon without CT evidence of diverticulitis. Large solid stool volume. Normal caliber small bowel. Appendix: No evidence of appendicitis. Intraperitoneal space: Unremarkable. No free air. No significant fluid collection. Vasculature: Atherosclerotic disease. Lymph nodes: Unremarkable. No enlarged lymph nodes. Urinary bladder: Unremarkable as visualized. Reproductive: Unremarkable as visualized. Bones/joints: Bilateral total hip arthroplasties. Decreased bone mineralization. Multilevel degenerative changes of the visualized spine. Grade 1 retrolisthesis of T12 on L1 and grade 1 anterolisthesis of L4 on L5. Soft tissues: Left posterior perirenal fat herniation. IMPRESSION: 1. Left posterior perirenal hernia defect. 2. Large solid stool volume with diverticuli. There is no CT evidence of diverticulitis. Recommend clinical correlation. 3. Bilateral adrenal nodules. 4. Atherosclerosis. 5. Additional findings as discussed above. 6. Limitations as discussed above. Dictated and Authenticated by: Karina Bardales MD. Ordering:ADALGISA Aldana MD
== END 2024-08-08 13:37 ==
LOC: DI 13:18
PROVIDERS: PCP Family Medicine; Visit Provider Physician Assistant Medical
DX: K57.30 Diverticulosis of large intestine without perforation or abscess without bleeding (principal)
CPT/HCPCS: 36415; 80053; 83690; 74177; 85025; J3490

== ENCOUNTER 2024-08-08 21:16 | Outpatient (REF) | payer MEDICARE, SELFPAY ==
[2024-08-08 14:51] LABS: Bacteria Few HPF (Negative); C & S Indicated? C&S Done As Ordered; Casts Negative LPF (Negative); Crystals Negative HPF (Negative); Epithelial Cells Rare HPF (Negative); Mucus Negative (Negative); WBC 0-2 HPF (0-5)
== END 2024-08-08 21:17 | disposition home or self-care (01) ==
LOC: LBN 21:16
PROVIDERS: PCP Family Medicine; Visit Provider Physician Assistant Medical
DX: R10.9 Unspecified abdominal pain (principal)
CPT/HCPCS: 81015; 87086

== ENCOUNTER 2024-08-31 14:02 | Outpatient (REF) | payer MEDICARE, SELFPAY | END 2024-08-31 14:03 | disposition home or self-care (01) | LOC: LBN 14:02 | PROVIDERS: PCP Family Medicine; Visit Provider Family Medicine | DX: R30.0 Dysuria (principal); R82.89 Other abnormal findings on cytological and histological examination of urine | CPT/HCPCS: 87086 ==

== ENCOUNTER 2024-09-10 12:51 | Outpatient (REF) | payer MEDICARE, SELFPAY ==
[2024-09-10 15:32] LABS: Bilirubin Negative (Negative); Blood Trace-lysed (Negative); Clarity Clear (Clear); Glucose Negative (Negative); Ketones Negative (Negative); Leukocyte Esterase Trace (Negative); Nitrite Negative (Negative); Specific Gravity 1.015 (1.005-1.025); Urobilinogen 0.2 mg/dL (Up to 0.2)
== END 2024-09-10 12:52 | disposition home or self-care (01) ==
LOC: NCHCN 12:51
PROVIDERS: PCP Student in an Organized Health Care Education/Training Program; Visit Provider Student in an Organized Health Care Education/Training Program
DX: R10.9 Unspecified abdominal pain (principal)
CPT/HCPCS: 81003

== ENCOUNTER 2024-09-11 10:30 | Outpatient (REF) | payer MEDICARE, SELFPAY | END 2024-09-11 10:31 | disposition home or self-care (01) | LOC: LBN 10:30 | PROVIDERS: PCP Student in an Organized Health Care Education/Training Program; Visit Provider Physician Assistant Medical | DX: L29.3 Anogenital pruritus, unspecified (principal) | CPT/HCPCS: 87480; 87510; 87660 ==

== ENCOUNTER 2024-10-04 12:32 | Outpatient (REF) | payer MEDICARE, SELFPAY ==
[2024-10-04 16:51] LABS: ALT 22 U/L (14-59); AST 20 U/L (15-37); Albumin 4.2 g/dL (3.4-5.0); Alkaline Phosphatase 72 U/L (46-116); Anion Gap 14.3 mmol/L (3-11); BUN 16 mg/dL (7-18); Bilirubin, Total 0.33 mg/dL (0.2-1.0); CO2 25.7 mmol/L (21.0-32.0); CREATININE 0.8 mg/dL (0.55-1.02); Calcium 10.3 mg/dL (8.5-10.1); Chloride 104 mmol/L (98-107); Estimated GFR 75.37 (mL/min/1.73m2); Glucose 100 mg/dL (74-106); Potassium 4.7 mmol/L (3.5-5.1); Sodium 144 mmol/L (136-145); Total Protein 7.7 g/dL (6.4-8.2)
== END 2024-10-04 12:33 | disposition home or self-care (01) ==
LOC: LBN 12:32
PROVIDERS: PCP Student in an Organized Health Care Education/Training Program; Visit Provider Physician Assistant Medical
DX: B37.0 Candidal stomatitis (principal)
CPT/HCPCS: 80053

== ENCOUNTER 2024-10-11 15:09 | Outpatient (REF) | payer MEDICARE, SELFPAY | END 2024-10-11 15:10 | disposition home or self-care (01) | LOC: LBN 15:09 | PROVIDERS: PCP Student in an Organized Health Care Education/Training Program; Visit Provider Physician Assistant Medical | DX: R10.2 Pelvic and perineal pain (principal) | CPT/HCPCS: 87480; 87510; 87660 ==

== ENCOUNTER 2024-10-18 17:00 | Outpatient (REF) | payer MEDICARE, SELFPAY ==
[2024-10-18 14:53] LABS: Abs Immature Grans 0.02 10^3/uL (0.0-0.06); Absolute Basophil Count 0.06 10^3/uL (0.0-0.2); Absolute Eosinophil Count 0.05 10^3/uL (0.0-0.7); Absolute Lymphocyte Count 1.62 10^3/uL (1.2-3.4); Absolute Neutrophil Count 4.42 10^3/uL (1.2-6.7); Basophils % 0.9 %; Eosinophils % 0.8 %; HCT 45.9 % (36.0-46.0); HGB 15.3 g/dL (11.2-15.7); Immature Grans % 0.3 %; Lymphocytes % 24.7 %; MCH 29.5 pg (27.0-33.0); MCHC 33.3 % (32.0-36.0); MCV 89 fL (80-95); MPV 11.2 fL (8.0-11.0); Monocytes % 6.1 %; Neutrophils % 67.2 %; Platelet Count 342 10^3/uL (130-400); RBC 5.18 10^6/uL (3.93-5.22); RDW 14.3 % (11.7-14.6); RDW-SD 46.7 fL; WBC 6.57 10^3/uL (4.4-10.8)
== END 2024-10-18 17:01 | disposition home or self-care (01) ==
LOC: LBN 17:00
PROVIDERS: PCP Student in an Organized Health Care Education/Training Program; Visit Provider Family Medicine
DX: E83.52 Hypercalcemia (principal)
CPT/HCPCS: 82310; 85025

== ENCOUNTER 2024-11-02 12:47 | Emergency (ER) | payer MEDICARE, SELFPAY ==
[2024-11-02] VITALS (15 sets, daily range): BP systolic 141–165; BP diastolic 57–86; PULSE 66–86; RESP 18; TEMP 36.6–36.8; O2SAT 94–100
--- NOTE | 2024-11-02 13:00 | RT.EKG_ITS ---
APPROVED REPORT Exam: Resting ECG Reason for Exam: chest pain Patient Location: E HR:69 bpm ECG Measurements Heart Rate 69 AXIS WY 137 P 43 QRSd 78 QRS 21 QT 391 T 30 QTc 418 Conclusion Sinus rhythm...normal P axis, V-rate 60- 99 Probable left atrial enlargement...P >50mS, <-0.10mV V1
--- NOTE | 2024-11-02 13:02 | DI.CT_ITS ---
Exam(s) CT CHEST PE ABD PELVIS W EXAM: CT CHEST PE ABD PELVIS W CLINICAL HISTORY: pleuritic bilateral chest pain, upper abdomen pain. TECHNIQUE: Imaging Protocol: Axial CT angiography was performed with multi-slice acquisition and mu lti-planar and/or 3D reconstructions. Computer aided detection (CAD) was utilized. CONTRAST MATERIAL: Intravenous: Omnipaque 350 Contrast volume:100 ml COMPARISON: CT CT ABDOMEN PELVIS W from 08/08/2024 FINDINGS: CHEST: The upper images are somewhat limited by artifact from right shoulder prosthesis and metallic density outside the patient.. Pulmonary Arteries: No evidence of filling defects to suggest pulmonary emboli. Tracheobronchial tree: No bronchiectasis or mucus plugging. Mediastinum and [place]: No dominant adenopathy or fluid collection. Pulmonary parenchyma: No consolidation or dominant measurable mass. Pleura: No effusion. No pneumothorax. Heart: The heart is notdilated. No coronary artery calcifications are seen. Aorta: Thoracic aorta non-dilated. Bones: Unremarkable for age. Tubes, Catheters, and Lines: None. Soft tissues: Unremarkable. ABDOMEN and PELVIS: Liver: Normal size. Normal density. Stable cyst in the left lobe. No suspicious measurable mass. Portal, Superior Mesenteric, and Splenic Veins: Unremarkable. Gallbladder and Biliary Tract: No radiodense calculus. No biliary dilatation. Pancreas: Normal density, no abnormal calcifications or inflammatory process. Spleen: Normal. Adrenals: No masses seen. Kidneys: Normal size, contour and axis. No radiodense stones. No obstructive uropathy. No masses seen . Vasculature: Abdominal aorta non-dilated. Mild calcification in the abdominal aorta. Calcificatio n at the origins of the SMA and celiac axis but no significant stenosis. Bowel: No obstruction or bowel wall thickening. Appendix is unremarkable. Prominent diverticulosis throughout the colon. No evidence of diverticulitis. Moderate to increased quantity of stool. Peritoneal Cavity: No ascites, collection or mesenteric inflammatory response. Lymph Nodes: Within normal limits. Soft Tissues: Unremarkable. Images through the pelvis somewhat limited by artifact from bilateral hip prostheses. Bladder: Symmetric distention, no gross wall thickening. Reproductive Organs: Unremarkable as visualized. Bones: Bilateral hip prostheses. Degenerative changes noted in the lumbar spine. IMPRESSION: 1. No evidence of pulmonary embolism or other acute abnormality in the chest. 2. No acute abdominal or pelvic process. RADIATION DOSE DELIVERED: Total DLP DATA REPOSITORY: All CT scans at this facility are submitted to the National Radiology Data Registry (NRDR) Dose Index Registry (DIR) with the [employer] (ACR). RADIATION OPTIMIZATION: All CT scans at this facility use at least one of these dose optimization te chniques: automated exposure control; mA and/or kV adjustment per patient size (includes targeted exa ms where dose is matched to clinical indication); or iterative reconstruction.
--- NOTE | 2024-11-02 13:09 | W.ED.GENAD ---
Discharge Plan Disposition Patient Disposition: Home Condition: Stable Discharge Details Chief Complaint: Abd Prob Clinical Impression: Abdominal pain Primary Care Provider: Santos Buchanan ED Provider: Akhil Fry Home Meds and New Rx's Prescriptions: No Action No Known Home Meds Discharge Instructions Instructions: Abdominal pain Additional Instructions: Your labs and imaging did not show any emergent concerning findings. You do have a small narrowing of one of the arteries in your abdomen. This may be the cause of your symptoms. I discussed the case with a vascular surgeon at [facility] who did not feel any emergent intervention was needed for this. She is going to put a note into her office staff to reach out to you to arrange for follow-up appointment with them. Take 81 mg of aspirin daily along with 20 mg of omeprazole daily If you feel more ill, have new symptoms such as high fevers or persistent vomiting return to the emergency department for reevaluation. There is no hernia seen on your CT today. HPI General Mode of arrival: ambulatory. Date/Time Provider Initiated Documentation: 11/02/24 12:48. Limitations to Documentation: no limitations. Information obtained by: patient. History of Present Illness 79 year old F presents to the emergency department with the chief complaint of lower bilateral chest and upper abdomen pain, described as moderate, Quality is described as aching, and is localized to the abdomen. Patient reports no radiation. and it has been constant. No relieving factors improve symptom(s), No exacerbating factors reported . Patient notes no other symptoms.. Patient did receive the following treatments prior to arrival, none Related Data Home Medications ?Medication ?Instructions ?Recorded ?Confirmed Unknown [No Known Home Meds] 03/29/16 11/02/24 Allergies Allergy/AdvReac Type Severity Reaction Status Date / Time influenza virus vac qs AdvReac Intermediate Other (See Verified 11/02/24 12:54 18-19(4 yr up) cell derived Comment) (From Flucelvax Quad [id number] (PF)) prednisone AdvReac Intermediate Other (See Unverified 11/02/24 12:54 Comment) codeine AdvReac Mild Agitation Unverified 11/02/24 12:54 lorazepam AdvReac Unknown Other (See Unverified 11/02/24 12:54 Comment) General Stated Complaint: Abd Prob DAVY: 3 Review of Systems All systems reviewed & are unremarkable except as noted in HPI and below Constitutional Constitutional: Denies chills, Denies fever(s) and Denies weakness Cardiovascular Cardiovascular: Reports chest pain and Denies dyspnea Respiratory Respiratory: Denies cough and Denies dyspnea Gastrointestinal Gastrointestinal: Reports abdominal pain, Denies nausea and Denies vomiting Genitourinary Genitourinary: Denies dysuria Neurologic Neurologic: Denies weakness Endocrine Endocrine: Denies cold intolerance Exam Const General: no acute distress Orientation: alert HENMT Head: normal to inspection Ears: external ears normal General nose exam: external nose normal Mouth: moist mucous membranes Eyes General: appearance normal, both eyes and all related structures Neck Neck: normal visual inspection Resp Effort & Inspection: normal respiratory effort and able to speak in complete sentences Auscultation: clear to auscultation bilaterally Cardio Jugular venous pressure: no JVD Rate: regular rate Heart Sounds: no murmurs GI Palpation: soft and tender Skin General skin exam: no rashes or lesions noted Neuro General: patient alert and patient oriented x3 Extrem General: normal to inspection Psych Mental Status: mental status grossly normal Course Vital Signs Vital signs: Vital Signs Temperature 36.6 C 11/02/24 12:50 Pulse 79 11/02/24 12:50 Respiratory Rate 18 11/02/24 12:50 Blood Pressure 142/83 H 11/02/24 12:50 Pulse Oximetry 96 11/02/24 12:50 Temperature 36.6 C 11/02/24 12:50 Temperature Source Oral 11/02/24 12:50 Pulse 79 11/02/24 12:50 Respiratory Rate 18 11/02/24 12:50 Respiratory Effort Normal, Non-Labored 11/02/24 12:55 Blood Pressure 142/83 H 11/02/24 12:50 Blood Pressure Position Sitting 11/02/24 12:50 Pulse Oximetry 96 11/02/24 12:50 Oxygen Delivery Method Room Air 11/02/24 12:50 Oxygen Flow Rate 0 11/02/24 12:50 Medical Decision Making 79-year-old female who has no significant past medical history comes in with continued abdominal discomfort. She has been having issues with intermittent abdominal pains in July and CT in July showing mild diverticulitis. She has been treated with Cipro and Flagyl over 8 weeks ago which seemed to help but she developed side effects such as oral thrush. She has had upper abdominal pain and lower bilateral chest pain for several days so came here. She denies any difficulty breathing, vomiting, fevers. She is well-appearing on exam, she does have tenderness in the left upper and right upper abdomen with no guarding or rebound, no lower abdominal tenderness. She localizes the pain in her chest to the lateral left and right chest in the midaxillary line, she has no palpable or visible deformities. Unclear etiology for her symptoms given her age we will proceed with an EKG and troponins, CBC, CMP, lipase, CTA of the chest to evaluate for PE and CT abdomen pelvis to evaluate for entities such as cholecystitis. Labs unremarkable, CT shows possible partial occlusion of the proximal SMA, patient is stable, has mild upper abdominal tenderness without guarding. Will consult with vascular surgery. spoke with Dr. Velasquez from vascular surgery who reviewed the case, imaging and labs, negative lactate. She does not feel the narrowing is significant enough to require emergent intervention, she will place on her clinic list to reach out to the patient for follow-up. She did recommend starting her on a daily aspirin. I will also start her on omeprazole. She is stable, only has minimal tenderness in the left upper quadrant without guarding. She is stable for discharge and will follow-up with her PCP and vascular surgery, return precautions given. Differential Diagnosis Differential Diagnosis: Irritable bowel syndrome, diverticulitis, and PE Medical Records Medical records reviewed: Yes I reviewed the patient's medical records. Imaging Data Radiologic Study: Attestation: I personally reviewed and interpreted this imaging study as follows: Imaging: CT Scan Radiologist's impression: IMPRESSION: 1. No evidence of pulmonary embolus to the segmental level. 2. No aneurysm of the aorta. 3. No dissection of the aorta. 4. 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 Lab Data Lab results reviewed: Yes I reviewed the patient's lab results. ECG Data Attestation: I personally reviewed and interpreted this ECG (s) as follows: Prior ECG tracings: not available for review Interpretation: sinus rate of 69 pr 137 no stemi Quality:SDOH Health Related Social Needs: No Data to Display PFSH All Active Problems (Updated 11/02/24 @ 15:59 by Akhil Fry MD) Abdominal pain (Acute) Medical History (Updated 11/02/24 @ 15:59 by Akhil Fry MD) Cataracts, bilateral Osteoarthritis Surgical History (Updated 11/16/20 @ 10:52 by Wilmar Garcia MD) Hx of esophagogastroduodenoscopy Hx of colonoscopy Hx of cataract extraction History of total left knee replacement Hx of tonsillectomy Social History Smoking/Tobacco Use Status: Never Smoking risk assessment performed?: Yes Alcohol Intake: current Alcohol Intake frequency: holidays/special occasions only Alcohol type: wine and hard liquor Drug use: Never Substance use type: does not use Details: alcohol: unknown Do you feel safe at home: Yes Do you feel safe in your relationship?: Yes
[2024-11-02 13:33] LABS: Abs Immature Grans 0.02 10^3/uL (0.0-0.06); Absolute Basophil Count 0.06 10^3/uL (0.0-0.2); Absolute Eosinophil Count 0.05 10^3/uL (0.0-0.7); Absolute Lymphocyte Count 1.94 10^3/uL (1.2-3.4); Absolute Monocyte Count 0.57 10^3/uL (0.1-0.8); Basophils % 0.7 %; Eosinophils % 0.6 %; HCT 45.1 % (36.0-46.0); HGB 14.6 g/dL (11.2-15.7); Immature Grans % 0.2 %; Lymphocytes % 22.2 %; MCHC 32.4 % (32.0-36.0); MCV 90 fL (80-95); MPV 9.4 fL (8.0-11.0); Monocytes % 6.5 %; Neutrophils % 69.8 %; Platelet Count 347 10^3/uL (130-400); RBC 5.03 10^6/uL (3.93-5.22); RDW 14.6 % (11.7-14.6); RDW-SD 47.7 fL; WBC 8.74 10^3/uL (4.4-10.8)
[2024-11-02] MEDS: Ketorolac 15 MG/ML VIAL IVP (13:38)
[2024-11-02] MEDS: Omnipaque 350 MG/ML 100 ML BTL IJ (13:50)
[2024-11-02 13:51] LABS: ALT 21 U/L (14-59); AST 17 U/L (15-37); Alkaline Phosphatase 76 U/L (46-116); Anion Gap 10.7 mmol/L (3-11); BUN 10 mg/dL (7-18); Bilirubin, Direct 0.1 mg/dL (0.0-0.2); Bilirubin, Total 0.51 mg/dL (0.2-1.0); CO2 28.3 mmol/L (21.0-32.0); CREATININE 0.9 mg/dL (0.55-1.02); Calcium 9.4 mg/dL (8.5-10.1); Chloride 104 mmol/L (98-107); Estimated GFR 65.44 (mL/min/1.73m2); Glucose 108 mg/dL (74-106); Lipase 34 U/L (<78); Magnesium 2.3 mg/dL (1.8-2.4); Potassium 3.7 mmol/L (3.5-5.1); Sodium 143 mmol/L (136-145); Total Protein 7.5 g/dL (6.4-8.2); Troponin I 10 ng/L (<or=51)
[2024-11-02] MEDS: Normal Saline - Diluent 50 ML VIAL IV (13:52)
--- NOTE | 2024-11-02 15:08 | DI.VRAD_ITS ---
PROCEDURE INFORMATION: Exam: CTA Chest With Contrast CTA Abdomen and Pelvis With Contrast Exam date and time: 11/02/2024 1:48 PM Age: 79 years old Clinical indication: Chest pressure and other: Pleuritic bilateral chest pain; Abdominal pain and other: Pleuritic bilateral chest pain; Localized; Left upper quadrant (luq) TECHNIQUE: Imaging protocol: Computed tomographic angiography of the chest with contrast. Exam focused on the arteries. Computed tomographic angiography of the abdomen and pelvis with contrast. Exam focused on the arteries. 3D rendering (Not supervised by radiologist): MIP and/or 3D reconstructed images were created by the technologist. Contrast material: OMNIPAQUE 350; Contrast volume: 100 ml; Contrast route: INTRAVENOUS (IV); COMPARISON: CT ABDOMEN PELVIS W 08/08/2024 3:48 PM FINDINGS: VASCULATURE: Pulmonary arteries: No evidence of pulmonary embolus to the segmental level. Aorta: No aneurysm of the aorta. No dissection of the aorta. 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 Renal arteries: No occlusion or significant stenosis. Right iliac arteries: No occlusion or significant stenosis. Left iliac arteries: No occlusion or significant stenosis. CHEST: Lungs: Unremarkable. No consolidation. No masses. Pleural spaces: Unremarkable. No pneumothorax. No pleural effusion. Heart: Unremarkable. No cardiomegaly. No pericardial effusion. ABDOMEN AND PELVIS: Liver: 2.2 cm simple cyst left lobe of the liver . No follow-up imaging recommended . Subcentimeter low attenuation area in the liver is too small for characterization. Gallbladder and biliary ducts: Unremarkable. No calcified stones. No ductal dilation. Pancreas: Unremarkable. No mass. No ductal dilation. Spleen: Unremarkable. No splenomegaly. Adrenal glands: Unremarkable. No mass. Kidneys and ureters: Unremarkable. No solid mass. No hydronephrosis. Stomach and bowel: Constipation throughout the colon. Diverticulosis of the rectosigmoid. No emil diverticulitis Appendix: No evidence of appendicitis. Intraperitoneal space: Unremarkable. No free air. No significant fluid collection. Urinary bladder: Unremarkable. No mass. Reproductive: Unremarkable as visualized. Lymph nodes: Unremarkable. No enlarged lymph nodes. Bones/joints: Right shoulder arthroplasty. Bilateral total hip replacements Soft tissues: Unremarkable. IMPRESSION: 1. No evidence of pulmonary embolus to the segmental level. 2. No aneurysm of the aorta. 3. No dissection of the aorta. 4. 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 Dictated and Authenticated by: Mayuri Hernandez MD. Ordering:JES Landaverde MD
[2024-11-02 15:09] LABS: Troponin I 11 ng/L (<or=51)
[2024-11-02 15:29] LABS: Lactate 0.6 mmol/L (0.6-1.4)
== END 2024-11-02 16:18 | disposition home or self-care (01) ==
PROVIDERS: Emergency Provider Emergency Medicine; PCP Student in an Organized Health Care Education/Training Program
DX: R07.9 Chest pain, unspecified (principal); R10.10 Upper abdominal pain, unspecified; K55.1 Chronic vascular disorders of intestine
CPT/HCPCS: 36415; 71275; 74177; 80053; 83690; 93005; 96374; 99285; 82248; 83605; 83735; 84484; 85025; 93010; 99284; J1885; J3490

== ENCOUNTER 2025-04-30 00:57 | Outpatient (CLI) | payer MEDICARE, SELFPAY ==
--- NOTE | 2025-04-30 | DI.MAMMO_ITS ---
Exam(s) MAMMO SCREENING EXAM: MAMMO SCREENING CLINICAL HISTORY: Screening, Z12.31 TECHNIQUE: Bilateral full field digital CC and MLO mammographic images were obtained with 3D tomosyn thesis and utilizing computer aided detection (CAD). COMPARISON: Available for comparison. FINDINGS: Masses/Architectural Distortion: No suspicious masses or areas of architectural distortion are presen t. Microcalcifications: No suspicious pleomorphic-type are seen. Skin Thickening/Nipple Retraction: None. IMPRESSION: 1. No significant interval change with no specific features of malignancy noted. 2. Unless there is more urgent need, screening mammography is recommended, as per [employer] guidelines. BI-RADS Category 1 - Negative Breast Density - Category C - The breast are heterogeneously dense, which may obscure small masses. Breast density Category C or D implies that the patient has dense breast tissue. Dense breast tissue can make it harder to find cancer on a mammogram. Dense breast tissue is also associated with an incr eased risk of breast cancer. This information about the result of the mammogram report was provided to the patient to raise their awareness. Use this report when you speak with the patient about their risks for breast cancer, which includes their family history. At that time, you may recommend additional screening tests (Ultrasoun d or MRI) as these tests may add significant information. A negative radiographic report should not delay biopsy if a dominant or clinically suspicious mass is present. Up to ten percent of cancers are not identified on mammography. A negative report may reinforce clinical impression. Adenosis and dense breasts may obscure an underlying neoplasm. False positive reports average 6 to 10%. Patient will receive a letter notifying them of these results.
== END 2025-04-30 01:17 ==
LOC: DI 00:57
PROVIDERS: PCP Student in an Organized Health Care Education/Training Program; Visit Provider Student in an Organized Health Care Education/Training Program
DX: Z12.31 Encounter for screening mammogram for malignant neoplasm of breast (principal); R92.333 Mammographic heterogeneous density, bilateral breasts
CPT/HCPCS: 77063; 77067